=== PATIENT | female | born 1965 | race Two or more races ===

== ENCOUNTER → 2017-05-27 | Outpatient (CLI) | payer MEDICARE, MEDICAID ==
--- NOTE | 2017-05-27 16:06 | RADRPT ---
PROCEDURE: XR Knee. CLINICAL INDICATION: 51 years of age, female. Left knee pain. TECHNIQUE: 4 views of the left knee. COMPARISON: None available. FINDINGS: Negative for evidence of acute fracture. There is a mild lateral patellar tilt. Otherwise normal alignment. There is tricompartment osteoarthritis with joint space narrowing and osteophytes in all 3 joint com partments. The changes are greatest in the medial knee joint compartment. Negative for evidence of a joint effusion. Negative for significant soft tissue swelling. IMPRESSION: Tricompartment osteoarthritis greatest in the medial compartment. RPTAT: HCTS Physician Rober Date Time Electronically viewed and signed by Physician Rober on 05/27/2017 16:06 /
--- NOTE | 2017-05-27 16:10 | RADRPT ---
PROCEDURE: XR hip with pelvis. CLINICAL INDICATION: 51 years of age, female. Pain. TECHNIQUE: AP view of the pelvis and 2 views of the left hip. COMPARISON: None available. 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 Otherwise the pros thesis has the expected appearance. Negative for evidence of loosening of the femoral stem. Normal alignment. Negative for evidence of acute fracture. Negative for significant soft tissue swel ling. AP PELVIS: Negative for evidence of acute fracture of the bony pelvic ring. Sacroiliac joints are unremarkable . Mild osteoarthritis of symphysis pubis. There is mild osteoarthritis of the right hip with superi or joint space narrowing and subchondral sclerosis. OTHER: Bowel gas pattern is normal. IMPRESSION: Noncemented left total hip replacement. 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 Recommend correlation with previous imaging available.. Mild right hip osteoarthritis. RPTAT: HCTS Physician Rober Date Time Electronically viewed and signed by Physician Rober on 05/27/2017 16:09 /
--- NOTE | 2017-05-27 16:12 | RADRPT ---
PROCEDURE: XR Knee. CLINICAL INDICATION: 51 years of age, female. Right knee pain. TECHNIQUE: Three views of the right knee. COMPARISON: None available. FINDINGS: There is a cemented hinged total knee replacement with the expected appearance. Negative for evidenc e of component loosening or failure. Negative for evidence of acute fracture. Normal alignment. Joint spaces are preserved. Negative for evidence of a joint effusion. Negative for significant soft tissue swelling. There is extensive of muscle atrophy. IMPRESSION: Cemented hinged total knee replacement with the expected appearance. Extensive muscle atrophy. RPTAT: HCTS Physician Rober Date Time Electronically viewed and signed by Physician Rober on 05/27/2017 16:12 CS/
== END | disposition home or self-care (01) ==
LOC: HKI 14:23
PROVIDERS: ATTEND Orthopaedic Surgery
DX: M25.562 Pain in left knee (principal); M17.12 Unilateral primary osteoarthritis, left knee; Z96.651 Presence of right artificial knee joint; Z96.642 Presence of left artificial hip joint; G14 Postpolio syndrome
CPT/HCPCS: 73502; 73562; 73564; G0463